=== PATIENT | male | born 1940 | race Caucasian/White ===

== ENCOUNTER 2024-12-28 14:02 | Outpatient (CLI) | payer MEDICARE, SELFPAY ==
--- NOTE | ~2024-12-28 | CT_ITS ---
CT abdomen pelvis wo con Ordering provider: Bonifacio Canchola DO History: 84 years Male with . R31.0 - Gross hematuria . Comparison: None. Technique: CT abdomen and pelvis without IV and without oral contrast. Automated exposure control and iterative reconstruction technique were employed. The dose-length product was 336.75 mGy-cm. Findings: VISUALIZED LOWER CHEST: Nodule is seen in the right lower lobe measuring 1.3 cm. Aneurysm cannot be e xcluded. Bilateral dependent atelectatic changes. UPPER ABDOMINAL ORGANS: Liver: Mild hepatomegaly. Gallbladder: Normal. Spleen: Normal. Stomach/duodenum: Normal. Pancreas: Normal. Adrenals: Normal. Kidneys: Tiny stone in the left kidney mid pole. PELVIC ORGANS: The bladder shows slightly thickened wall. Evaluation for cystitis advised. Enlarged p rostate. BOWEL AND MESENTERY: Colon: No evidence of diverticulitis. No evidence of appendicitis. Small Bowel: Normal. No obstruction. Peritoneum/mesentery: No free air or free fluid. No mesenteric lymphadenopathy. RETROPERITONEUM: Stents are noted. 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 Moderate atheromatous disease of the abdominal aorta. No retroperitoneal lymphadenopathy. MUSCULOSKELETAL: Superficial soft tissues: The superficial soft tissues are normal. Bones: Old compression fracture of L1 and L2 is seen. Age appropriate degenerative changes of the spi ne. Bilateral hip osteoarthritic changes. IMPRESSION: 1. Highly suggestive aneurysm versus nodule in the right lung base pulmonary branches area. Further evaluation advised. 2. Highly suggestive tiny stone in the left kidney. 3. Mild hepatomegaly. 4. 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 5. Thickened wall of the urinary bladder which may indicate cystitis. 6. Enlarged prostate.. Physician: Bonifacio Canchola DO Was notified with the result of the patient at 3:55 PM on December 28, 2024. Reviewed, dictated and finalized at location A. IMPRESSION: 1. Highly suggestive aneurysm versus nodule in the right lung base pulmonary b ranches area. Further evaluation advised. 2. Highly suggestive tiny stone in the left kidney. 3. Mild hepatomegaly. 4. 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 5. Thickened wall of the urinary bladder which may indicate cystitis. 6. Enlarged prostate.. Physician: Bonifacio Canchola DO Was notified with the result of the patient at 3:55 PM on December 28, 2024.
--- OUTSIDE RECORDS SUMMARY | 2024-12-28 14:05 | XMS_ITS | Encounter Summary ---
Author Organization [facility] Health Address [address] [facility] [place] [address] Care Team Providers Care Software Developer Mid Level Name Role Phone Alfa Martines Primary Care Provider [phone] Blaze Akhtar MD Unavailable [phone] Jamie Jaime MD Unavailable Encounter Details Date Type Department Care Team (Late st Contact Info) Description 01/25/2018 Lab Requisition [facility] Care DermPath Lab [address] [facility], [place] [id number] Des Hannon MD [address] [place] [address] Social History Tobacco Use Types Packs/Day Years Used Date Smoking Tobacco: Every Day Cigarettes 1 20 Smokeless Tobacco: Never Alcohol Use Standard Drinks/Week Comments No 0 (1 standard drink = 0.6 oz pur e alcohol) Sex and Gender Information Value Date Recorded Sex Assigned at Not on file 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 Answer Date of Assessment Author No 10/15/2017 2:27 PM Sly Garcia RN * Is person blind or have serious difficulty seeing? Answer Date of Assessment Author Yes 10/15/2017 2:27 PM Sly Garcia RN * Does person have serious difficulty walking/climbing stairs? Answer Date of Assessment Author No 10/15/2017 2:27 PM Sly Garcia RN * Does person have difficulty dressing/bathing? Answer Date of Assessment Author No 10/15/2017 2:27 PM CDT Sly Senior RN * Does person have difficulty doing errands alone? Answer Date of Assessment Author No 10/15/2017 2:27 PM CDT Sly Senior RN documented as of this encounter Mental Status * Does person have difficulty concentrating/remembering/making decisions? Answer Entry Date Author No 10/15/2017 2:27 PM CDT Sly Senior RN documented in this encounter Plan of Treatment Not on file documented as of this encounter Procedures Procedure Name Priority Date/Time Associated Diagnosis Comments DERMATOPATHOLOGY Routine 01/24/2018 12:0 0 AM CDT documented in this encounter Results * DERMATOPATHOLOGY (01/24/2018 12:00 AM CDT) Case Report Dermatopathology Report Case: [id number] Authorizing Provider: Des Hannon MD Collected: 01/24/2018 12:00 AM Pathologist: Melody Lepe MD Received: 01/25/2018 11:44 AM Specimen: Skin, left upper outer arm 8 1:55 PM CDT DERMATOPATHOLOGY LABORATORY Final Diagnosis Specimen A. SKIN, left upper outer arm: DERMAL SCAR; PRESENT AT MARGIN (L90.5) RESIDUAL SQUAMOUS CELL CARCINOMA NOT IDENTIFIED 8 1:55 PM CDT DERMATOPATHOLOGY LABORATORY at 1355 CDT Clinical History R/O Bx proven SCCIS. Previous Bx: [id number]. 8 1:55 PM CDT DERMATOPATHOLOGY LABORATORY Gross Description Specimen A: Received is one formalin filled container labeled with the patient's name and designated left upper outer arm. The specimen consists of a curettage and desiccation biopsy measuring [id number]. Jar 0. 8 1:55 PM CDT DERMATOPATHOLOGY LABORATORY Microscopic Description Specimen A. SKIN, left upper outer arm: There are fibroblasts and collagen bundles oriented parallel to the skin surface. There are elongated blood vessels, some of which are oriented perpendicular to the skin surface. No residual squamous cell carcinoma is identified. The dermal scar is present at the base of the specimen. 8 1:55 PM CDT DERMATOPATHOLOGY LABORATORY Disclaimer An external and internal positive and negative controls are appropriate for the histochemical, immunohistochemical and immunofluorescence stain(s) in this case (if any), except where stated explicitly. The performance characteristics of the stain(s) cited in this report were developed and its performance characteristic determined by the Dermatopathology Laboratory at [facility]. These tests need not be, and therefore are not, approved by the [place] Food and Drug Administration. The tests are used for clinical purposes. Billing Codes Specimen Charges Stain Charges 48479 1 8 1:55 PM CDT DERMATOPATHOLOGY LABORATORY Embedded Images 1:55 PM CDT DERMATOPATHOLOGY LABORATORY Pathology/Cytolog y TISSUE SPECIMEN FROM SKIN / Unknown 01/24/2018 01/25/2018 11:44 AM CDT Des Hannon MD LAB - PATHOLOGY/CYTOLOGY ORD ERABLES Final Result Performing Organization Address City/State/[facility] Co de Phone Number DERMATOPATHOLOGY LABORATORY [facility] - Department of Dermatology [address] [place] [address], 5th Floor Lab [address] [phone] documented in this encounter Visit Diagnoses Not on filedocumented in this encounter Care Teams Software Developer Mid Level Relationship Specialty Start Date End Date Alfa Martines DO [address] [facility] [address] [place] [address] PCP - General 10/14/10 Blaze Akhtar MD [address] [facility] [address] [address] Cardiovascular Disease 09/21/17 Jamie Jaime MD [address] [facility] [address] [address] Vascular Surgery 09/21/17 documented as of this encounter
--- OUTSIDE RECORDS SUMMARY | 2024-12-28 14:05 | XMS_ITS | Encounter Summary ---
Author Organization [facility] Health Address [address] [place] [address] Care Team Providers Care Paperboard Boxes Estimator Name Role Phone Alfa Martines DO Primary Care Provider [phone] Blaze Akhtar MD Unavailable [phone] Jamie Jaime MD Unavailable [phone] Encounter Details Date Type Department Care Team (Late st Contact Info) Description 10/15/2017 Ophth Exam [facility] [address] [place] [address] Leida Cantu MD [address] [facility] [place] [address] Social History Tobacco Use Types Packs/Day Years Used Date Smoking Tobacco: Every Day Cigarettes 1 20 Smokeless Tobacco: Never Alcohol Use Standard Drinks/Week Comments No 0 (1 standard drink = 0.6 oz pur e alcohol) Sex and Gender Information Value Date Recorded Sex Assigned at Not on file 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 Answer Date of Assessment Author No 10/15/2017 2:27 PM Sly Garcia RN documented as of this encounter Mental Status * Does person have difficulty concentrating/remembering/making decisions? Answer Entry Date Author No 10/15/2017 2:27 PM Sly Garcia RN documented in this encounter Plan of Treatment Not on file documented as of this encounter Visit Diagnoses Not on filedocumented in this encounter Care Teams Paperboard Boxes Estimator Relationship Specialty Start Date End Date Alfa Martines DO [address] [facility] [address] [address] PCP - General 10/14/10 Blaze Akhtar MD [address] [facility] [address] [address] Cardiovascular Disease 09/21/17 Jamie Jaime MD [address] [facility] [address] [address] Vascular Surgery 09/21/17 documented as of this encounter
--- OUTSIDE RECORDS SUMMARY | 2024-12-28 14:05 | XMS_ITS | Encounter Summary ---
Author Organization [facility] Health Address [address] [place] [address] Care Team Providers Care Head Of Digital Advertising & Integration Name Role Phone Alfa Martines Primary Care Provider [phone] Blaze Akhtar MD Unavailable [phone] Jamie Jaime MD Unavailable [phone] Encounter Details Date Type Department Care Team (Late st Contact Info) Description 04/24/2020 Lab Requisition [facility] Care DermPath Lab [address] [facility], [place] [id number] Des Hannon MD [address] [place] [address] Social History Tobacco Use Types Packs/Day Years Used Date Smoking Tobacco: Every Day Cigarettes 1 20 Smokeless Tobacco: Never Alcohol Use Standard Drinks/Week Comments No 0 (1 standard drink = 0.6 oz pur e alcohol) Sex and Gender Information Value Date Recorded Sex Assigned at Not on file 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 Gender Identity Not on file Sexual Orientation [...] Priority Date/Time Associated Diagnosis Comments DERMATOPATHOLOGY Routine 04/23/2020 12:0 0 AM SEMICONDUCTOR PROCESSOR documented in this encounter Results * DERMATOPATHOLOGY (04/23/2020 12:00 AM SEMICONDUCTOR PROCESSOR) Case Report Dermatopathology Report Case: [id number] Authorizing Provider: Des Hannon MD Collected: 04/23/2020 12:00 AM Ordering Location: [facility] DermPath Lab Received: 04/24/2020 11:25 AM Pathologist: Gallito Rosario MD Specimens: A) - Skin, left post thigh B) - Skin, left inner thigh 0 5:19 PM [facility] DERMATOPATHOLOGY LABORATORY Final Diagnosis Specimen A. SKIN, left post thigh: SPONGIOTIC DERMATITIS WITH EOSINOPHILS (L30.8) (see microscopic description and comment) Specimen B. SKIN, left inner thigh: SPONGIOTIC DERMATITIS WITH NUMEROUS EOSINOPHILS (L30.8) (see microscopic description and comment) 0 5:19 PM SEMICONDUCTOR PROCESSOR DERMATOPATHOLOGY LABORATORY at 1719 SEMICONDUCTOR PROCESSOR Clinical History A-B: R/O psoriasis, eczema, allergic dermatitis vs CTCL. 0 5:19 PM [facility] DERMATOPATHOLOGY LABORATORY Gross Description Specimen A: Received is one formalin filled container labeled with the patient's name and designated left post thigh. The specimen consists of a shave biopsy measuring [id number]. Jar 0. Specimen B: Received is one formalin filled container labeled with the patient's name and designated left inner thigh. The specimen consists of a shave biopsy measuring [id number]. Jar 0. 0 5:19 PM [facility] DERMATOPATHOLOGY LABORATORY Microscopic Description Specimen A. SKIN, left post thigh: There is focal parakeratosis and spongiosis. In the dermis there is a mainly superficial perivascular lymphohistiocytic inflammatory infiltrate with eosinophils. Grocott's methenamine silver (GMS) stain fails to highlight fungal elements in the available sections. COMMENT: The histological differential diagnosis includes a contact dermatitis, an eczematous drug eruption, and less likely the urticarial phase of bullous pemphigoid. Specimen B. SKIN, left inner thigh: There is focal parakeratosis and spongiosis. In the dermis there is a mainly superficial perivascular lymphohistiocytic inflammatory infiltrate with numerous eosinophils. Grocott's methenamine silver (GMS) stain fails to highlight fungal elements in the available sections. COMMENT: The histological differential diagnosis includes a contact dermatitis, an eczematous drug eruption, and less likely the urticarial phase of bullous pemphigoid. 0 5:19 PM [facility] DERMATOPATHOLOGY LABORATORY Disclaimer An external and internal positive and negative controls are appropriate for the histochemical, immunohistochemical and immunofluorescence stain(s) in this case (if any), except where stated explicitly. The performance characteristics of the stain(s) cited in this report were developed and its performance characteristic determined by the Dermatopathology Laboratory at [facility], directed by Dr. Bhaskar Rosario. These tests need not be, and therefore are not, approved by the [place] Food and Drug Administration. The tests are used for clinical purposes. Billing Codes Specimen Charges Stain Charges 46790 32094 1 1 74003 23524 1 1 0 5:19 PM [facility] DERMATOPATHOLOGY LABORATORY Embedded Images 0 5:19 PM [facility] DERMATOPATHOLOGY LABORATORY Pathology/Cytology TISSUE SPECIMEN FROM SKIN / Unknown 04/23/2020 04/24/2020 11:25 AM SEMICONDUCTOR PROCESSOR Miscellaneous samples (specimen) TISSUE SPECIMEN FROM SKIN / Unknown 04/23/2020 04/24/2020 11:25 AM SEMICONDUCTOR PROCESSOR us Des Hannon MD LAB - PATHOLOGY/CYTOLOGY ORD ERABLES Final Result DERMATOPATHOLOGY LABORATORY [facility] - Department of Dermatology [address] [phone] documented in this encounter Visit Diagnoses Not on filedocumented in this encounter Care Teams Head Of Digital Advertising & Integration Relationship Specialty Start Date End Date Alfa Martines DO [address] [facility] [address] [place] [address] PCP - General 10/14/10 Blaze Akhtar MD [address] [facility] [address] [facility] [address] [place] [address] Cardiovascular Disease 09/21/17 Jamie Jaime MD [address] [facility] [address] [address] Vascular Surgery 09/21/17 documented as of this encounter
--- OUTSIDE RECORDS SUMMARY | 2024-12-28 14:05 | XMS_ITS | Clinical Summary ---
Author Organization [facility] D Address [address] [place] [address] Care Team Providers Care Manager Poker Name Role Phone Alfa Martines MD Primary Care Provider [phone] Blaze Akhtar MD Unavailable [phone] Lazara Tompkins MD Unavailable Javed Gibbs MD Unavailable [phone] Allergies Active Allergy Reactions Criticality Noted Date Comments Ketoprofen Fever Medium 06/26/2021 Other Other (See comments) High 07/01/2021 Penicillin Other (See comments) High 07/01/2021 Penicillins Other (See comments) Low Reaction: UNSPEC CHILDHD RX, , , Medications cilostazoL (PLETAL) 100 mg tabletIndication s:Intermittent Claudication Take 1 tablet (100 mg total) by mouth 2 (two) times a day 60 tablet 11 1 Active simvastatin (ZOCOR) 80 mg tablet Take 80 mg by mouth nightly Active aspirin 81 mg chewable tablet Take 81 mg by mouth daily Active NIFEdipine (PROCARDIA XL/ADALAT CC) 90 mg 24 hr tablet Take 90 mg by mouth daily Active cyclobenzaprine (FLEXERIL) 10 mg tablet Take 10 mg by mouth 3 (three) times a day as needed for muscle spasms Active metoprolol XL (TOPROL-XL) 25 mg extended release tablet Take 1 tablet (25 mg total) by mouth daily 30 tablet 1 2 Active Additional Information Patient taking differently: 50 mgoral Daily, Reported on 01/06/2022 clopidogreL (PLAVIX) 75 mg tablet 2 Active betamethasone dipropionate (DEL-BETA) 0.05 % cream 2 Active predniSONE (DELTASONE) 1 mg tablet TAKE 4 TABLETS (4 MG) BY MOUTH DAILY 360 tablet 3 Active Active Problems Problem Noted Date Diagnosed Date Influenza 05/31/2023 SBO (small bowel obstruction) 06/26/2021 Severe malnutrition 06/26/2021 Pain 06/16/2021 Stage 3b chronic kidney disease 06/15/2021 RENA (acute kidney injury) 06/15/2021 Generalized weakness 06/15/2021 Generalized pain 06/15/2021 Hyperlipidemia 07/29/2015 Overview (09/17/2016): Hyperlipidemia Assessment & Plan (12/07/2019 3:39 PM CDT): Lipid panel today demonstrates an LDL of 81 mg/dL. Will continue current therapy but shared with the patient that his LDL has increased since his last assessment. Assessment & Plan (09/29/2018 2:16 PM CDT): Well controlled. Continue current therapy. Assessment & Plan (09/14/2017 11:04 AM CDT): Well controlled. Follow. Essential hypertension 07/29/2015 Overview (09/17/2016): Essential hypertension Assessment & Plan (12/07/2019 3:39 PM CDT): Well controlled. Continue current therapy. Pain in extremity 01/23/2015 Overview (09/17/2016): Pain in limb Peripheral arterial occlusive disease (CMS/HCC) 04/19/2014 Overview (09/17/2016): Peripheral artery disease Assessment & Plan (12/05/2020 2:51 PM CDT): Symptoms are consistent with peripheral vascular disease but noninvasive assessments of recently been relatively unremarkable. He has renal insufficiency so CT angiography may be relatively contraindicated. I have no objection to an empiric trial of Pletal. Will discontinue Plavix to avoid excessive bleeding risk. Continue aspirin. Assessment & Plan (09/14/2017 11:03 AM CDT): Managed elsewhere. Likely stable. Dyslipidemia 10/27/2013 Overview (09/15/2016): Dyslipidemia Coronary arteriosclerosis in [place] artery 10/27 Overview (09/16/2016): CAD in [place] artery Assessment & Plan (12/05/2020 2:51 PM CDT): Doing well. No chest discomfort on his current regimen. Continue current prescription medications. Assessment & Plan (12/07/2019 3:38 PM CDT): Doing well. Continue current therapy. Assessment & Plan (09/29/2018 2:16 PM CDT): Stable. No angina. Continue current therapy. Assessment & Plan (09/14/2017 11:03 AM CDT): Stable. No angina. Continue current therapy. Hypertension 10/27/2013 Overview (09/18/2016): Hypertension Assessment & Plan (09/14/2017 11:04 AM CDT): Well controlled. Continue current therapy. History of coronary artery bypass surgery 2013 Overview (09/18/2016): Hx of CABG Spinal stenosis of lumbar region 06/22/2013 Overview (09/15/2016): Lumbar spinal stenosis Radicular pain 06/22/2013 Overview (09/18/2016): Lumbar radiculopathy, chronic Weight loss, unintentional Acute urinary retention Abdominal pain Immunizations Immunization Administration Dates Next Due Influenza, Quadrivalent, Spl it, Preservative Free, Intramuscular 03/12/2020,06/28/2014 Influenza, Trivalent, IM (MDV) 05/13/2021,2019 Pfizer SARS-CoV-2 Monovalent Vaccination (12+ Yrs) PURPLE 05/05/2021,07/28/2020,07/07/2020 Pneumococcal Polysaccharide PPV23 06/28/2014 Tdap 08/29/2018 Surgical History Surgery Date Site/Laterality Comments CORONARY ARTERY BYPASS GRAFT CABG Medical History Medical History Date Comments Hx Other Medical CAD Hypertension Hypertension Hyperlipidemia Hyperlipidemia Hx Other Medical Lumbar Spine Di sease Neoplasm of testis Cancer, testi cular Peripheral vascular disease Comfort pheral vascular disease Coronary artery disease CKD (chronic kidney disease) Family History Medical History Relation Name Comments Dementia Father Dementia; Cause of : Dementia Coronary artery disease Mother Fran nary Artery Bypass Graft; Lung cancer Mother Cancer -lung; C ause of : Cancer -lung Coronary artery disease Other Fami ly history of Coronary artery disease; Relation Name Status Comments Father (Age 83) Mother (Age 83) Other Social History Tobacco Use Types Packs/Day Years Used Date Smoking Tobacco: Every Day Cigarettes Smokeless Tobacco: Never Tobacco Cessation:Ready to Q uit: Not Asked; Counseling Given: Not Answered Alcohol Use Standard Drinks/Week Comments Yes 0 (1 standard drink = 0.6 oz pur e alcohol) Social Connection and Isolat ion Panel [NHANES] Answer Date Recorded In a typical week, how many times do you talk on the phone with family, friends, or neighbors? More than three times a week 06/29/2021 How often do you get togethe r with friends or relatives? More than three times a week 06/29/2021 How often do you attend chur ch or voodoo services? Never 06/29/2021 Do you belong to any clubs o r organizations such as catholic groups, unions, fraternal or athletic groups, or school groups? No 06/29/2021 How often do you attend meet ings of the clubs or organizations you belong to? Never 06/29/2021 Are you , , di vorced, , never , or living with a partner? 06/29/2021 Overall Financial Resource Strain (CARDIA) Answe r Date Recorded How hard is it for you to pa y for the very basics like food, housing, medical care, and heating? Not hard at all 06/29/2021 PHQ-2 Answer Date Recorded PHQ-2 Total Score (If total score is 3 or more points, staff should administer the PHQ-9) 0 01/06/2022 PRAPARE - Transportation Answer Date Re corded In the past 12 months, has l ack of transportation kept you from medical appointments or from getting medications? No 06/13 In the past 12 months, has l ack of transportation kept you from meetings, work, or from getting things needed for daily living? No 06/29/2021 Personal Safety Answer Date Recorded Have you ever been in or are you currently in a harmful physical or emotional relationship or is someone making you feel afraid or unsafe? Denies 05/31/2023 Sex and Gender Information Value Date Recorded Sex Assigned at Not on file Legal Sex Male 8:12 AM SCIENCE INTERN Gender Identity Not on file Sexual Orientation Not on file Obstetrics History Last Filed Vital Signs Vital Sign Reading Time Taken Comments Blood Pressure 196/76 05/31/2023 7:25 PM SCIENCE INTERN Pulse 94 05/31/2023 7:25 PM SCIENCE INTERN Temperature 37.7 C (99.9 F) 05/31/2023 7:25 PM SCIENCE INTERN Respiratory Rate 20 05/31/2023 7:25 PM SCIENCE INTERN Oxygen Saturation 97% 05/31/2023 7:25 PM SCIENCE INTERN Inhaled Oxygen Concentration - - Weight 77.1 kg (170 lb) 05/31/2023 4:07 PM SCIENCE INTERN Height 182.9 cm (6') 09/01/2022 8:58 AM CDT Body Mass Index 23.06 09/01/2022 8:58 AM CDT Plan of Treatment Health Maintenance Due Date Last Done Comments Hepatitis B Screening 02[birth year]19/1958 Zoster Vaccine (1 of 2) 02/19/1990 Well Visit 65+ 02/19/2005 Pneumococcal vaccine 65+ (2 of 2 - PCV) 06/28/2015 06/28/2014 Depression Screening 01/06/2023 01/06/2022 Fall Risk Assessment 01/06/2023 01/06/2022, 06/29/19 22 Covid-19 Vaccine (4 - 2023-2 5 season) 2024 05/05/2021, 07/28/2020, 07/07/2020 Influenza Vaccine (#1) 2025 , 03/12/2020, 03/12/2020, Additional history exists DTaP/Tdap/Td Vaccine (2 - Td or Tdap) 08/29/2028 08/29/2018 Insurance T MEDICARE AET MEDICARE AET MEDICARE Advance Directives For more information, please contact: [phone] Documents on File Type Date Recorded Patient Prenatal Teacher Expl anation ADVANCE DIRECTIVE 07/26/2013 12:18 PM Adva nce Directive Checklist ADVANCE DIRECTIVE 07/26/2013 12:17 PM ADVANCE DIRECTIVE 07/16/2013 12:17 PM ADVANCE DIRECTIVE 07/16/2013 12:17 PM Advan ce Directive Checklist * LIMITED - No CPR (Latest Code Status on File) Date Activated Date Inactivated Comments 06/29/2021 12:30 PM 06/29/2021 6:20 PM Question Answer Comments Provide aggressive medical m anagement before a full cardiopulmonary arrest occurs. Use antibiotics, IV Fluids, and medical treatment unless specifically selected below: No intubationNo non-invasive ventilationNo cardioversion * Full Code Date Activated Date Inactivated Comments 06/26/2021 10:30 AM 06/29/2021 12:30 PM * LIMITED - No CPR Date Activated Date Inactivated Comments 06/15/2021 5:11 PM 06/17/2021 11:15 PM Question Answer Comments Provide aggressive medical m anagement before a full cardiopulmonary arrest occurs. Use antibiotics, IV Fluids, and medical treatment unless specifically selected below: No intubationNo non-invasive ventilationNo cardioversion Care Teams Manager Poker Relationship Specialty Start Date End Date Alfa Martines MD [address] [address] PCP - General 09/10/16 Blaze Akhtar MD [address] [address] Cardiology 01/03/17 Lazara Tompkins MD [address] [address] Medical Oncologist/Finance Officer Hematology and Oncology 06/22/21 [place] [address] [place] [address] Consulting Physician Urology 06/29/21
--- OUTSIDE RECORDS SUMMARY | 2024-12-28 14:05 | XMS_ITS | Encounter Summary ---
Author Organization [facility] Health Address [address] [facility] [place] [address] Care Team Providers Care Employee'S Representative Name Role Phone Alfa Martines Primary Care Provider [phone] Blaze Akhtar MD Unavailable [phone] Jamie Jaime MD Unavailable [phone] Encounter Details Date Type Department Care Team (Late st Contact Info) Description 12/07/2017 Lab Requisition [facility] Care DermPath Lab [address] 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 8 4:26 PM CDT DERMATOPATHOLOGY LABORATORY Gross Description Specimen A: Received is one formalin filled container labeled with the patient's name and designated left upper outer arm. The specimen consists of a shave biopsy measuring [id number]. Jar 0. 8 4:26 PM CDT DERMATOPATHOLOGY LABORATORY Microscopic Description Specimen A. SKIN, left upper outer arm: The epidermis shows parakeratosis, full thickness disorderly maturation of keratinocytes, mitoses at different levels, and dyskeratotic cells. 8 4:26 PM CDT DERMATOPATHOLOGY LABORATORY Disclaimer An external and internal positive and negative controls are appropriate for the histochemical, immunohistochemical and immunofluorescence stain(s) in this case (if any), except where stated explicitly. The performance characteristics of the stain(s) cited in this report were developed and its performance characteristic determined by the Dermatopathology Laboratory at [facility]. These tests need not be, and therefore are not, approved by the [place] Food and Drug Administration. The tests are used for clinical purposes. Billing Codes Specimen Charges Stain Charges 42528 1 8 4:26 PM CDT DERMATOPATHOLOGY LABORATORY Embedded Images 8 4:26 PM CDT DERMATOPATHOLOGY LABORATORY Pathology/Cytolog y TISSUE SPECIMEN FROM SKIN / Unknown 12/06/2017 12/07/2017 12:09 PM CDT Des Hannon MD LAB - PATHOLOGY/CYTOLOGY ORD ERABLES Final Result DERMATOPATHOLOGY LABORATORY [facility] - Department of Dermatology [address] [place] [address] 5th Floor Lab [address] [phone] documented in this encounter Visit Diagnoses Not on filedocumented in this encounter Care Teams Employee'S Representative Relationship Specialty Start Date End Date Alfa Martines DO [address] [facility] [address] [place] [address] PCP - General 10/14/10 Blaze Akhtar MD [address] [facility] [address] [address] Cardiovascular Disease 09/21/17 Jamie Jaime MD [address] [facility] [address] [address] Vascular Surgery 09/21/17 documented as of this encounter
--- OUTSIDE RECORDS SUMMARY | 2024-12-28 14:05 | XMS_ITS | Referral Summary ---
Author Organization [facility] D Address [address] [place] [address] Care Team Providers Care Consumer Attorney Name Role Phone Alfa Martines MD Primary Care Provider [phone] Blaze Akhtar MD Unavailable [phone] Lzaara Tompkins MD Unavailable Javed Gibbs MD Unavailable [phone] Allergies Active Allergy Reactions Criticality Noted [...] 10/27/2013 Overview (09/15/2016): Dyslipidemia Coronary arteriosclerosis in [place] artery 10/27 Overview (09/16/2016): CAD in [place] artery Assessment & Plan (12/05/2020 2:51 PM [...] 05/05/2021,07/28/2020,07/07/2020 Pneumococcal Polysaccharide PPV23 06/28/2014 Tdap 08/29/2018 Social History Tobacco Use Types Packs/Day Years [...] often do you attend chur ch or sikhism services? 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 Gender Identity Not on file Sexual Orientation Not on file Last Filed Vital Signs Vital Sign Reading Time Taken Comments Blood Pressure 196/76 05/31/2023 7:25 PM FOXING CUTTING MACHINE OPERATOR Pulse 94 05/31/2023 7:25 PM FOXING CUTTING MACHINE OPERATOR Temperature 37.7 C (99.9 F) 05/31/2023 7:25 PM FOXING CUTTING MACHINE OPERATOR Respiratory Rate 20 05/31/2023 7:25 PM FOXING CUTTING MACHINE OPERATOR Oxygen Saturation 97% 05/31/2023 7:25 PM FOXING CUTTING MACHINE OPERATOR Inhaled Oxygen Concentration - - Weight 77.1 kg (170 lb) 05/31/2023 4:07 PM FOXING CUTTING MACHINE OPERATOR Height 182.9 cm (6') 09/01/2022 8:58 AM CDT Body Mass Index 23.06 09/01/2022 8:58 AM CDT Plan of Treatment Not on file Insurance [facility] MEDICARE [facility] MEDICARE [facility] MEDICARE Advance Directives For more information, please contact: [phone] Documents on File Type Date Recorded Patient Electronic Resources Librarian Expl anation ADVANCE DIRECTIVE 07/26/2013 12:18 PM [...] No intubationNo non-invasive ventilationNo cardioversion Care Teams Consumer Attorney Relationship Specialty Start Date End Date Alfa Martines MD [address] [facility] [address] [place] [address] PCP - General 09/10/16 Blaze Akhtar MD [address] [facility] [address] [place] [address] Cardiology 01/03/17 Lazara Tompkins MD [address] [facility] [address] [place] [address] Medical Oncologist/It Business Systems Analyst Hematology and Oncology 06/22/21 [place] [address] [place] [address] Consulting Physician Urology 06/29/21
--- OUTSIDE RECORDS SUMMARY | 2024-12-28 14:05 | XMS_ITS | Clinical Summary ---
Author Organization [facility] Address [address] [place] [address] Phone Care Team Providers Care Ships Or Barges Loader Name Role Phone Alfa Martines DO Primary Care Provider [phone] Allergies Active Allergy Reactions Criticality Noted Date Comments Ketoprofen Penicillins Medications aspirin (ASPIR-LOW) 81 MG EC tablet 1 daily 0 08/14/2018 Active NIFEdipine XL (PROCARDIA XL) 90 MG 24 hr tablet 1 dialy 0 08/14/2018 Active simvastatin (ZOCOR) 80 MG tablet 1 daily 0 08/14/2018 Active clopidogrel (PLAVIX) 75 MG tablet TAKE ONE TABLET BY MOUTH EVERY DAY 05/15/2019 Active lisinopril-hydro CHLOROthiazide (PRINZIDE) 20-25 MG per tablet 10/27/2020 Activ e cilostazol (PLETAL) 100 MG tablet 05/04/2021 Active predniSONE (DELTASONE) 1 MG tablet 4 mg 10/29/2021 Active metoprolol succinate XL (TOPROL-XL) 25 MG 24 hr tablet 10/28/2021 Act sheila Active Problems Problem Noted Date Diagnosed Date 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 Continue current therapy. Coronary arteriosclerosis 10/27/2013 Overview (11/27/2020): CAD in [place] artery Last Assessment & Plan: Doing well. Continue current therapy. Dyslipidemia 10/27/2013 Overview (11/27/2020): Dyslipidemia History of coronary artery bypass grafting 10/27 Overview (11/27/2020): Overview: Hx of CABG Hx of CABG Immunizations Immunization Administration Dates Next Due Influenza TIV (IM) 05/13/2021,03/12/2020 Influenza, Injectable, Quadr ivalent, Preservative Free 03/12/2020,06/28/2014 Pfizer Sars-cov-2 Vaccination 05/05/2021, 021,07/07/2020 Pneumococcal Polysaccharide 06/28/2014 Tdap 08/29/2018 Family History Medical History Relation Comments Kidney disease Neg Hx Social History Tobacco Use Types Packs/Day Years Used Date Smoking Tobacco: Heavy Smoker Smokeless Tobacco: Never Comments:Smoking History Pac ks/day: 1 ppd Alcohol Use Standard Drinks/Week Comments Yes 0 (1 standard drink = 0.6 oz pur e alcohol) Alcoholic Drinks/day: rare Sex and Gender Information Value Date Recorded Sex Assigned at Not on file Legal Sex Male 7:53 PM [email or web address] Gender Identity Not on file Sexual Orientation Not on file Last Filed Vital Signs Vital Sign Reading Time Taken Comments Blood Pressure 134/70 11/30/2021 8:41 AM CDT Pulse 84 11/30/2021 8:41 AM CDT Temperature 36.2 C (97.1 F) 11/30/2021 8:41 AM CDT Respiratory Rate - - Oxygen Saturation - - Inhaled Oxygen Concentration - - Weight 76.7 kg (169 lb) 11/30/2021 8:41 AM CDT Height 185.4 cm (6' 1) 11/30/2021 8:41 AM CDT Body Mass Index 22.3 11/30/2021 8:41 AM CDT Plan of Treatment Health Maintenance Due Date Last Done Comments Pneumococcal PPSV23/PCV13 65 + Years / Low and Medium Risk (2 of 3 - PCV) 06/28/2015 06/28/2014 COVID-19 Vaccine (4 - 2023-2 5 season) 2024 05/05/2021, 07/28/2020, 07/07/2020 Influenza Vaccine (#1) 2025 , 03/12/2020, 03/12/2020, Additional history exists Insurance [employer] MEDICARE Care Teams Ships Or Barges Loader Relationship Specialty Start Date End Date Alfa Martines DO [address] [id number] PCP - General Internal Medicine 09/25/18
--- OUTSIDE RECORDS SUMMARY | 2024-12-28 14:05 | XMS_ITS | Continuity of Care Document ---
Author Organization [facility] Address [address] [facility] [address] [place] [address] Phone Care Team Providers Care Jboss Architect Name Role Phone [facility] Unavailable Unavail able Procedures Procedure Date Progressive Lens Per Lens Frames Deluxe Tax - Medical Office/outpatient Visit, Est No Script Eye Exam Established Pt No Script Office/outpatient Visit, Est Script Printed/Phoned Pt Requ Or Pharm N ot Availab Eye Exam Established Pt Eye Exam & Treatment Optic Nerve Head Eval Refraction Advance Directives Directive Yes / No Effective Date File Name No Information Encounters Encounter Description Practice Location Reason(s) For Visit Diagnoses Date Provider Providers Copied on Encounter [facility], [address] [place] [address] [address], [place], [place], [id number], [place] tel:[phone] [facility] No Information 9-200 9 [facility]. [address] [facility], [address], [place], [place], [id number], [place]. tel:[phone] Office/outpat ient Visit, Est [facility], [address] [place] [address] [address], [place], [place], [id number], [place] tel:[phone] [facility] [place] No Information 0-200 9 Krishnasamy Jaun. [address] [facility] [address], [place], [address], [place]. tel:[phone] [facility], [address], [place], [place], [id number], tel:[phone] [facility] No Information Mar-1 8-200 9 Krishnasamy Jaun. [facility] [address], [place], [place], [facility], . tel:[phone] Office/outpat ient Visit, Est [facility], [address] [place] [address] [address], [place], [place], [id number], tel:[phone] [facility] No Information Mar-1 6-200 9 Krishnasamy Jaun. [facility] [address], [place], [place], [facility], . tel:[phone] [facility], [address] [place] [address] [address], [place], [place], [id number], tel:[phone] [facility] No Information Mar-1 0-200 9 Loli Cox. [address] [facility] , [address], [place], [place], [facility], . tel:[phone] [facility], [address] [place] [address] [address], [place], [place], [id number], tel:[phone] [facility] No Information Dec-2 9-200 8 Ean Denny. [facility] , [address], [place], [place], [facility], . tel:[phone] Family History Family Member Type Diagnosis Age At Onset No Information Payers Payer name Insurance type Covered republican ID Authoriza tion(s) No Information Social History Type Description Quantity Date Captured Comments Sex Male Smoking Status No Information Chief Complaint And Reason For Visit No Information Reason For Referral Reason For Referral No Information History Of Present Illness Encounter Date Complaint History Of Prese nt Illness No Information Functional Status Date Functional Assessmen t No Information Instructions Date Instruction Additional Infor mation No Information Assessments Type Assessment Date No Information Patient Care Teams Name Effective Dates (start - stop) Status Members No Information
--- OUTSIDE RECORDS SUMMARY | 2024-12-28 14:05 | XMS_ITS | Clinical Summary ---
Author Organization [facility] Address [address] [facility] [place] [address] Care Team Providers Care Director Of Financial Reporting Name Role Phone IvettAlfa wick Primary Care Provider [phone] Blaze Akhtar MD Unavailable [phone] Jamie Jaime MD Unavailable [phone] Source Comments [facility],non-owned Affiliates and Associated Physician Practices is amultiple site organization consisting of ambulatory clinics and hospital sitesin [place], [place], [place] and [place]. This disclosure is being madepursuant to the Care Everywhere program and may not contain all information available regarding this patient. Last updated 18.[facility] Allergies Active Allergy Reactions Criticality Noted Date Comments Ketoprofen Other Low 10/27/2011 High fever, High fever Penicillins Cross Reactors Other Low 2 fever, fever Medications * Be aware that medications may not be up to date on this document. Alwaysverify current medications with the patient. clopidogrel (PLAVIX) 75 MG tablet Take 75 mg by mouth DAILY. 01/14/2016 Active ASPIRIN 81 PO Take 81 mg by mouth Active SIMVASTATIN PO Take 80 mg by mouth once daily Active mupirocin (BACTROBAN) 2 % ointment 0.25 inch to the right side three times a day 22 g 1 12/23/2017 Active NIFEdipine CR osmotic 24hr (PROCARDIA-XL) 90 MG tablet Take 1 tablet by mouth once daily 01/25/2018 Active neomycin-polymy jessica-dexameth (MAXITROL) ophthalmic ointmentIndicat ions:Anophthalm os of right eye Instill 0.5 inches into right eye at bedtime 3.5 g 3 06/14/2018 Active tobramycin-dexa methasone (TOBRADEX) 0.3-0.1 % ophthalmic suspension Instill 1 drop into right eye 3 times daily as needed (drainage) 5 mL 2 06/14/2018 Active Active Problems Problem Noted Date Diagnosed Date 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 Likely stable. 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 Gender Identity Not on file Sexual Orientation Not on file Last Filed Vital Signs Vital Sign Reading Time Taken Comments Blood Pressure 117/50 10/15/2017 12:20 PM CDT Pulse 57 10/15/2017 12:20 PM CDT Temperature 36.4 C (97.6 F) 10/15/2017 12:20 PM CDT Respiratory Rate 16 10/15/2017 12:20 PM CDT Oxygen Saturation 95% 10/15/2017 12:20 PM CDT Inhaled Oxygen Concentration 21% 10/14/2017 1 1:00 AM CDT Weight 78 kg (172 lb) 10/14/2017 6:56 AM CDT Height 185.4 cm (6' 1) 10/14/2017 6:56 AM CDT Body Mass Index 22.69 10/14/2017 6:56 AM CDT Plan of Treatment Health Maintenance Due Date Last Done Comments DTAP/TDAP/TD VACCINES (1 - Tdap) 02/19/1959 ZOSTER VACCINE (1 of 2) 02/19/1990 Respiratory Syncytial Virus (RSV) Vaccine Pt: or over 60 yrs (1 - 1-dose 75+ series) 02/19/2015 PNEUMOCOCCAL VACCINE 50+ (2 of 2 - PCV) 06/28/2015 06/28/2014 COVID-19 VACCINE ( - 2023-2 5 season) 2024 DEPRESSION SCREENING 06/13/2024 MEDICARE AWV CALENDAR YEAR 2024 INFLUENZA VACCINE (#1) 2025 06/28/2014 HEPATITIS B VACCINE Aged Out No longe r eligible based on patient's age to complete this topic HIB VACCINE Aged Out No longer eligi ble based on patient's age to complete this topic HPV VACCINE Aged Out No longer eligi ble based on patient's age to complete this topic MENINGOCOCCAL (Group B) VACC INE SHARED DECISION-MAKING Aged Out No longer eligibl e based on patient's age to complete this topic MENINGOCOCCAL GROUPS A/C/Y/W VACCINE Aged Out No longer eligible b ased on patient's age to complete this topic Medical Devices Implanted Type Area Tester Operator Device Identifier Shelf Expiration Date Model / Serial / Lot Cnfrmr Opth Lg Pmma Ltwt Inert Rohini Implanted:Qty: 1 on 10/14/2017 by Leida Cantu MD at [facility] 06/22/2018 [id number] / / Insurance [facility] MANAGED MEDICARE ADV [facility] MANAGED MEDICARE ADV Advance Directives Documents on File Type Date Recorded Patient Lidar Technician Expl anation Adv Directive/Living Will/POA 10/21/2017 9:00 AM * Full Code (Latest Code Status on File) Date Activated Date Inactivated Comments 10/14/2017 6:32 PM 10/15/2017 4:28 PM * Full Code Date Activated Date Inactivated Comments 10/13/2017 7:51 PM 10/14/2017 6:32 PM Care Teams Director Of Financial Reporting Relationship Specialty Start Date End Date Alfa Martines DO [address] [facility] [address] [place] [id number] PCP - General 10/14/10 Blaze Akhtar MD [address] [facility] [address] [address] Cardiovascular Disease 09/21/17 Jamie Jaime MD [address] [facility] [address] [address] Vascular Surgery 09/21/17
== END 2024-12-28 14:03 | disposition home or self-care (01) ==
PROVIDERS: PCP Internal Medicine; Visit Provider Internal Medicine
DX: R31.0 Gross hematuria (principal); R16.0 Hepatomegaly, not elsewhere classified; I72.8 Aneurysm of other specified arteries; N40.0 Benign prostatic hyperplasia without lower urinary tract symptoms
CPT/HCPCS: 74176

== ENCOUNTER 2025-01-04 14:16 | Outpatient (CLI) | payer MEDICARE, SELFPAY ==
--- NOTE | ~2025-01-04 | CT_ITS ---
EXAMINATION: CT chest abdomen pelvis w con DATE: 01/04/2025 14:55 INDICATION: Aneurysm and hematuria TECHNIQUE: Computed tomography (CT) of the chest, abdomen, and pelvis was performed with 100 mL Omnip aque-350 intravenous contrast. Automated exposure control and iterative reconstruction technique were employed. The dose-length product was 473.42 mGy-cm. COMPARISON: 12/28/2024 FINDINGS: CHEST CT: Mild to moderate emphysema. Few small bilateral calcified pulmonary nodules along with calcified left hilar and mediastinal lymph nodes consistent with old granulomatous disease. The lesions suspect of aneurysm in the right lower lobe corresponds to the posterior segmental pulmonary artery. Mild depend ent atelectasis in the bilateral lower lobes. There is some fat tracking along the caudal aspect of t he left major fissure. No pneumonia, pulmonary edema or pleural effusion. Heart size is normal. Ather osclerotic coronary artery disease with change of prior median sternotomy and coronary artery bypass grafting. No pericardial effusion. Thoracic aorta is normal in caliber with no dissection. No patholo gically enlarged thoracic lymphadenopathy. Mild thoracic spondylosis. ABDOMEN/PELVIS CT: Liver, gallbladder, pancreas and bilateral adrenal glands are normal. There are some cortical scarrin g at the lower poles of both kidneys along with a few low-attenuation left renal cysts measuring up t o 1.2 cm. There are a few subcentimeter hypoenhancing lesions in the spleen most likely representing hemangiomas. There is moderate diverticulosis along the sigmoid colon without adjacent inflammatory s tranding to suggest diverticulitis. Small bowel and appendix are normal. Small region of intraluminal increased density along the caudal aspect of the bladder consistent with given history of hematuria. . Prostatomegaly measuring 4.9 x 3.3 cm. No free intraperitoneal gas or fluid. No pathologically enla rged abdominal or pelvic lymphadenopathy. There is calcified atherosclerosis of the normal caliber ab dominal aorta and many of the other arteries. Vascular stenting along the right common and external i liac artery. 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 Right inguinal postoperative changes with a few surgical clips and scarring in the subc utaneous tissues. Mild to moderate lower lumbar predominant spondylosis with chronic superior endplat e compression fractures at L1 and L2. IMPRESSION: 1. Mild to moderate emphysema. 2. 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 Stenting of the more proximal right common femoral external iliac artery. 3. Moderate diverticulosis. 4. Small region of increased attenuation suggestive but blood along the inferior bladder wall. 5. Prostatomegaly. Reviewed, dictated and finalized at location A. IMPRESSION: 1. Mild to moderate emphysema. 2. Postoperative changes at the right inguinal region with 2.0 cm fusiform aneu rysm of the right common femoral artery. Stenting of the more proximal right co mmon femoral external iliac artery. 3. Moderate diverticulosis. 4. Small region of increased attenuation suggestive but blood along the inferio r bladder wall. 5. Prostatomegaly.
--- OUTSIDE RECORDS SUMMARY | 2025-01-04 14:20 | XMS_ITS | Clinical Summary ---
Author Organization [facility] D Address [address] [place] [address] Care Team Providers Care Installation And Repair Technician Name Role Phone Alfa Martines MD Primary Care Provider [phone] Blaze Akhtar MD Unavailable [phone] Lazara Tompkins MD Unavailable Javed Gibbs MD Unavailable [phone] Allergies Active Allergy Reactions Criticality Noted [...] 10/27/2013 Overview (09/15/2016): Dyslipidemia Coronary arteriosclerosis in [place] artery 10/27 Overview (09/16/2016): CAD in [place] artery Assessment & Plan (12/05/2020 2:51 PM [...] often do you attend chur ch or latter day services? 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 Gender Identity Not on file Sexual Orientation Not on file Obstetrics History Last Filed Vital Signs Vital Sign Reading Time Taken Comments Blood Pressure 196/76 05/31/2023 7:25 PM ADMINISTRATIVE JOB TITLES Pulse 94 05/31/2023 7:25 PM ADMINISTRATIVE JOB TITLES Temperature 37.7 C (99.9 F) 05/31/2023 7:25 PM ADMINISTRATIVE JOB TITLES Respiratory Rate 20 05/31/2023 7:25 PM ADMINISTRATIVE JOB TITLES Oxygen Saturation 97% 05/31/2023 7:25 PM ADMINISTRATIVE JOB TITLES Inhaled Oxygen Concentration - - Weight 77.1 kg (170 lb) 05/31/2023 4:07 PM ADMINISTRATIVE JOB TITLES Height 182.9 cm (6') 09/01/2022 8:58 AM [...] Advance Directives For more information, please contact: [phone] Documents on File Type Date Recorded Patient Wood Piler Expl anation ADVANCE DIRECTIVE 07/26/2013 12:18 PM [...] No intubationNo non-invasive ventilationNo cardioversion Care Teams Installation And Repair Technician Relationship Specialty Start Date End Date Alfa Martines MD [address] [address] PCP - General 09/10/16 Blaze Akhtar MD [address] [address] Cardiology 01/03/17 Lazara Tompkins MD [address] [address] Medical Oncologist/Stitcher Tape Controlled Machine Hematology and Oncology 06/22/21 [place] [address] [place] [address] Consulting Physician Urology 06/29/21
--- OUTSIDE RECORDS SUMMARY | 2025-01-04 14:20 | XMS_ITS | Clinical Summary ---
Author Organization [facility] Address [address] [place] [address] Care Team Providers Care Licensed Loan Officer Name Role Phone IvettAlfa wick Primary Care Provider [phone] Blaze Akhtar MD Unavailable [phone] Jamie Jaime MD Unavailable [phone] Source Comments [facility],non-owned Affiliates and Associated Physician Practices is amultiple site organization consisting of ambulatory clinics and hospital sitesin [place], [place], [place] and [place]. This disclosure is being madepursuant to the Care Everywhere program and may not contain all information available regarding this patient. 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 Gender Identity Not on file Sexual Orientation [...] this topic Medical Devices Implanted Type Area Commercial Green Building Designer Device Identifier Shelf Expiration Date Model / Serial / Lot Cnfrmr Opth Lg Pmma Ltwt Inert Rohini Implanted:Qty: 1 on 10/14/2017 by Leida Cantu MD at [facility] 06/22/2018 [id number] / / Insurance [facility] MANAGED MEDICARE ADV [facility] MANAGED MEDICARE ADV Advance Directives Documents on File Type Date Recorded 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 Adv Directive/Living Will/POA 10/21/2017 9:00 AM * Full Code (Latest Code Status on File) Date Activated Date Inactivated Comments 10/14/2017 6:32 PM 10/15/2017 4:28 PM * Full Code Date Activated Date Inactivated Comments 10/13/2017 7:51 PM 10/14/2017 6:32 PM Care Teams Licensed Loan Officer Relationship Specialty Start Date End Date Alfa Martines DO [address] [facility] [address] [place] [id number] PCP - General 10/14/10 Blaze Akhtar MD [address] [facility] [address] [address] Cardiovascular Disease 09/21/17 Jamie Jaime MD [address] [facility] [address] [address] Vascular Surgery 09/21/17
--- OUTSIDE RECORDS SUMMARY | 2025-01-04 14:20 | XMS_ITS | Referral Summary ---
Author Organization [facility] D Address [address] [place] [address] Care Team Providers Care Thread Grinder Tool Name Role Phone Alfa Mratines MD Primary Care Provider [phone] Blaze Akhtar MD Unavailable [phone] Lazara Tompkins MD Unavailable Javed Gibbs MD Unavailable [phone] Allergies Active Allergy Reactions Criticality Noted [...] 10/27/2013 Overview (09/15/2016): Dyslipidemia Coronary arteriosclerosis in [place] artery 10/27 Overview (09/16/2016): CAD in [place] artery Assessment & Plan (12/05/2020 2:51 PM [...] any clubs o r organizations such as yazidism groups, unions, fraternal or athletic groups, or [...] on file 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 Gender Identity Not on file Sexual Orientation Not on file Last Filed Vital Signs Vital Sign Reading Time Taken Comments Blood Pressure 196/76 05/31/2023 7:25 PM SCALES INSPECTOR Pulse 94 05/31/2023 7:25 PM SCALES INSPECTOR Temperature 37.7 C (99.9 F) 05/31/2023 7:25 PM SCALES INSPECTOR Respiratory Rate 20 05/31/2023 7:25 PM SCALES INSPECTOR Oxygen Saturation 97% 05/31/2023 7:25 PM SCALES INSPECTOR Inhaled Oxygen Concentration - - Weight 77.1 kg (170 lb) 05/31/2023 4:07 PM SCALES INSPECTOR Height 182.9 cm (6') 09/01/2022 8:58 AM CDT Body Mass Index 23.06 09/01/2022 8:58 AM CDT Plan of Treatment Not on file Insurance [facility] Address: [facility] [id number] [place] [id number] [facility] MEDICARE [facility] MEDICARE Advance Directives For more information, please contact: [phone] Documents on File Type Date Recorded 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 anation ADVANCE DIRECTIVE 07/26/2013 12:18 PM [...] No intubationNo non-invasive ventilationNo cardioversion Care Teams Thread Grinder Tool Relationship Specialty Start Date End Date Alfa Martines MD [address] [facility] [address] [place] [address] PCP - General 09/10/16 Blaze Akhtar MD [address] [facility] [address] [place] [address] Cardiology 01/03/17 Lazara Tompkins MD [address] [facility] [address] [place] [address] Medical Oncologist/Reproduction Specialist Hematology and Oncology 06/22/21 [place] [address] [place] [address] Consulting Physician Urology 06/29/21
--- OUTSIDE RECORDS SUMMARY | 2025-01-04 14:20 | XMS_ITS | Encounter Summary ---
Author Organization [facility] Health Address [address] [place] [address] Care Team Providers Care Outsole Beveler Name Role Phone Alfa Martines DO Primary Care Provider [phone] Blaze Akhtar MD Unavailable [phone] Jamie Jaime MD Unavailable [phone] Encounter Details Date Type Department Care Team (Late st Contact Info) Description 10/15/2017 Ophth Exam [facility] [address] [place] [address] Leida Cantu MD [address] [facility] [place] [place] [address] Social History Tobacco Use Types Packs/Day Years Used Date Smoking Tobacco: Every Day Cigarettes 1 20 Smokeless Tobacco: Never Alcohol Use Standard Drinks/Week Comments No 0 (1 standard drink = 0.6 oz pur e alcohol) Sex and Gender Information Value Date Recorded Sex Assigned at Not on file 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
--- OUTSIDE RECORDS SUMMARY | 2025-01-04 14:20 | XMS_ITS | Clinical Summary ---
Author Organization [facility] Address [address] [place] [address] Phone Care Team Providers Care Rug Cleaning Supervisor Name Role Phone Alfa Martines DO Primary Care Provider [phone] Allergies Active Allergy Reactions Criticality Noted Date [...] disease 08/14/2018 Atherosclerotic heart diseas e of [place] coronary artery without angina pectoris 08/14/2018 Malignant neoplasm of unspec ified testis, unspecified whether descended or undescended 08/14/2018 Hyperlipidemia 07/29/2015 Overview (01/25/2019): Hyperlipidemia Last Assessment & Plan: Well controlled. Continue current therapy. Coronary arteriosclerosis 10/27/2013 Overview (11/27/2020): CAD in [place] artery Last Assessment & Plan: Doing well. [...] on file Legal Sex Male 7:53 PM [facility] Gender Identity Not on file Sexual Orientation [...] exists Insurance [employer] MEDICARE Care Teams Rug Cleaning Supervisor Relationship Specialty Start Date End Date Alfa Martines DO [address] [phone] PCP - General Internal Medicine 09/25/18
--- OUTSIDE RECORDS SUMMARY | 2025-01-04 14:20 | XMS_ITS | Encounter Summary ---
Author Organization [facility] Health Address [address] [facility] [place] [address] Care Team Providers Care Participant Administrator Name Role Phone Alfa Martines Primary Care Provider [phone] Blaze Akhtar MD Unavailable [phone] Jamie Jaime MD Unavailable [phone] Encounter Details Date Type Department Care Team (Late st Contact Info) Description 04/24/2020 Lab Requisition [facility] Care DermPath Lab [address] [facility], [place] [phone] Des Hannon MD [address] [place] [address] Social History Tobacco Use Types Packs/Day Years Used Date Smoking Tobacco: Every Day Cigarettes 1 20 Smokeless Tobacco: Never Alcohol Use Standard Drinks/Week Comments No 0 (1 standard drink = 0.6 oz pur e alcohol) Sex and Gender Information Value Date Recorded Sex Assigned at Not on file Legal Sex Male 5:54 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 HYPERBARIC 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 Gender Identity Not on file Sexual Orientation [...] Comments DERMATOPATHOLOGY Routine 04/23/2020 12:0 0 AM CERTIFIED HYPERBARIC 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 documented in this encounter Results * DERMATOPATHOLOGY (04/23/2020 12:00 AM CERTIFIED HYPERBARIC 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) Case Report Dermatopathology Report Case: [id number] Authorizing Provider: Des Hannon MD Collected: 04/23/2020 12:00 AM Ordering Location: [facility] DermPath Lab Received: 04/24/2020 11:25 AM Pathologist: Gallito Rosario MD Specimens: A) - Skin, left post thigh B) - Skin, left inner thigh 0 5:19 PM [facility] DERMATOPATHOLOGY LABORATORY Final Diagnosis Specimen A. SKIN, left post thigh: SPONGIOTIC DERMATITIS WITH EOSINOPHILS (L30.8) (see microscopic description and comment) Specimen B. SKIN, left inner thigh: SPONGIOTIC DERMATITIS WITH NUMEROUS EOSINOPHILS (L30.8) (see microscopic description and comment) 0 5:19 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 HYPERBARIC 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 DERMATOPATHOLOGY LABORATORY at [address] CERTIFIED HYPERBARIC 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 Clinical History A-B: R/O psoriasis, eczema, allergic dermatitis vs CTCL. 0 5:19 PM [facility] DERMATOPATHOLOGY LABORATORY Gross Description Specimen A: Received is one formalin filled container labeled with the patient's name and designated left post thigh. The specimen consists of a shave biopsy measuring [id number]. Jar 0. Specimen B: Received is one formalin filled container labeled with the patient's name and designated left inner thigh. The specimen consists of a shave biopsy measuring [id number]. Jar 0. 0 5:19 PM [facility] DERMATOPATHOLOGY LABORATORY Microscopic Description Specimen A. SKIN, [...] phase of bullous pemphigoid. 0 5:19 PM [facility] DERMATOPATHOLOGY LABORATORY Disclaimer An external and internal positive and negative controls are appropriate for the histochemical, immunohistochemical and immunofluorescence stain(s) in this case (if any), except where stated explicitly. The performance characteristics of the stain(s) cited in this report were developed and its performance characteristic determined by the Dermatopathology Laboratory at [facility], directed by Dr. Bhaskar Rosario. These tests need not be, and therefore are not, approved by the [place] Food and Drug Administration. The tests are used for clinical purposes. Billing Codes Specimen Charges Stain Charges 29660 76727 1 1 77128 02843 1 1 0 5:19 PM [facility] DERMATOPATHOLOGY LABORATORY Embedded Images 0 5:19 PM [facility] DERMATOPATHOLOGY LABORATORY Pathology/Cytology TISSUE SPECIMEN FROM SKIN / Unknown 04/23/2020 04/24/2020 11:25 AM CERTIFIED HYPERBARIC 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 Miscellaneous samples (specimen) TISSUE SPECIMEN FROM SKIN / Unknown 04/23/2020 04/24/2020 11:25 AM CERTIFIED HYPERBARIC 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 us Des Hannon MD LAB - PATHOLOGY/CYTOLOGY ORD ERABLES Final Result DERMATOPATHOLOGY LABORATORY [facility] - Department of Dermatology [address] Floor [address] [phone] documented in this encounter Visit Diagnoses Not on filedocumented in this encounter Care Teams Participant Administrator Relationship Specialty Start Date End Date Alfa Martines DO [address] [facility] [address] [place] [address] PCP - General 10/14/10 Blaze Akhtar MD [address] [facility] [address] [facility] [address] [place] [address] Cardiovascular Disease 09/21/17 Jamie Jaime MD [address] [facility] [address] [address] Vascular Surgery 09/21/17 documented as of this encounter
--- OUTSIDE RECORDS SUMMARY | 2025-01-04 14:20 | XMS_ITS | Encounter Summary ---
Author Organization [facility] Health Address [address] [facility] [place] [address] Care Team Providers Care Promotions Assistant Name Role Phone Alfa Martines Primary Care Provider [phone]- [phone] Blaze Akhtar MD Unavailable [phone] Jamie Jaime MD Unavailable [phone] Encounter Details Date Type Department Care Team (Late st Contact Info) Description 01/25/2018 Lab Requisition [facility] Care DermPath Lab [address] [facility], [place] [phone] Des Hannon MD [address] [place] [address] Social History Tobacco Use Types Packs/Day Years Used Date Smoking Tobacco: Every Day Cigarettes 1 20 Smokeless Tobacco: Never Alcohol Use Standard Drinks/Week Comments No 0 (1 standard drink = 0.6 oz pur e alcohol) Sex and Gender Information Value Date Recorded Sex Assigned at Not on file 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 Previous Bx: [id number]. 8 1:55 PM CDT DERMATOPATHOLOGY LABORATORY Gross Description Specimen A: Received is one formalin filled container labeled with the patient's name and designated left upper outer arm. The specimen consists of a curettage and desiccation biopsy measuring [id number]. Jar 0. 8 1:55 PM CDT DERMATOPATHOLOGY [...] characteristic determined by the Dermatopathology Laboratory at [facility]. These tests need not be, and therefore are not, approved by the [place] Food and Drug Administration. The tests are used for clinical purposes. Billing Codes Specimen Charges Stain Charges 32829 1 8 1:55 PM CDT DERMATOPATHOLOGY LABORATORY Embedded Images 1:55 PM CDT DERMATOPATHOLOGY LABORATORY Pathology/Cytolog y TISSUE SPECIMEN FROM SKIN / Unknown 01/24/2018 01/25/2018 11:44 AM CDT Des Hannon MD LAB - PATHOLOGY/CYTOLOGY ORD ERABLES Final Result Performing Organization Address City/State/[facility] Co de Phone Number DERMATOPATHOLOGY LABORATORY [facility] - Department of Dermatology [address] [place] [address], 5th Floor Lab [address] [phone] documented in this encounter Visit Diagnoses Not on filedocumented in this encounter Care Teams Promotions Assistant Relationship Specialty Start Date End Date Alfa Martines DO [address] [facility] [address] [place] [address] PCP - General 10/14/10 Blaze Akhtar MD [address] [facility] [address] [address] Cardiovascular Disease 09/21/17 Jamie Jaime MD [address] [facility] [address] [address] Vascular Surgery 09/21/17 documented as of this encounter
--- OUTSIDE RECORDS SUMMARY | 2025-01-04 14:20 | XMS_ITS | Encounter Summary ---
Author Organization [facility] Health Address [address] [place] [address] Care Team Providers Care Outside Cutter Hand Name Role Phone Alfa Martines Primary Care Provider [phone] Blaze Akhtar MD Unavailable [phone] Jamie Jaime MD Unavailable [phone] Encounter Details Date Type Department Care Team (Late st Contact Info) Description 12/07/2017 Lab Requisition [facility] Care DermPath Lab [address] 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 Jar 0. 8 4:26 PM CDT DERMATOPATHOLOGY [...] characteristic determined by the Dermatopathology Laboratory at [facility]. These tests need not be, and therefore are not, approved by the [place] Food and Drug Administration. The tests are used for clinical purposes. Billing Codes Specimen Charges Stain Charges 36093 1 8 4:26 PM CDT DERMATOPATHOLOGY LABORATORY Embedded Images 8 4:26 PM CDT DERMATOPATHOLOGY LABORATORY Pathology/Cytolog y TISSUE SPECIMEN FROM SKIN / Unknown 12/06/2017 12/07/2017 12:09 PM CDT Des Hannon MD LAB - PATHOLOGY/CYTOLOGY ORD ERABLES Final Result DERMATOPATHOLOGY LABORATORY [facility] - Department of Dermatology [address] [place] [address] 5th Floor Lab [address] [phone] documented in this encounter Visit Diagnoses Not on filedocumented in this encounter Care Teams Outside Cutter Hand Relationship Specialty Start Date End Date Alfa Martines DO [address] [facility] [address] [place] [address] PCP - General 10/14/10 Blaze Akhtar MD [address] [facility] [address] [address] Cardiovascular Disease 09/21/17 Jamie Jaime MD [address] [address] Vascular Surgery 09/21/17 documented as of this encounter
--- OUTSIDE RECORDS SUMMARY | 2025-01-04 14:20 | XMS_ITS | Continuity of Care Document ---
Author Organization [facility] Address [address] [place] [address] Phone Care Team Providers Care Training Project Manager Name Role Phone [facility] [employer] Unavailable [...] Diagnoses Date Provider Providers Copied on Encounter [facility], [address] [place] [address] [address], [place], [place], [id number], [place] tel:[phone] SEC [facility] No Information 9-200 9 [facility] [employer]. [address] [facility], [address], [place], [place], [id number], [place]. tel:[phone] Office/outpat ient Visit, Est [facility], [address] [place] [address] [address], [place], [place], [id number], [place] tel:[phone] [facility] No Information 0-200 9 Krishnasamy Jaun. [address] [facility] [address], [place], [address], [place]. tel:[phone] [facility], [address], [place], [place], [id number], tel:[phone] [facility] No Information Mar-1 8-200 9 Krishnasamy Jaun. [facility] [place] [address], [place], [place], [facility], . tel:[phone] Office/outpat ient Visit, Est [facility], [address] [place] [address] [address], [place], [place], [id number], tel:[phone] SEC [facility] No Information Mar-1 6-200 9 Krishnasamy Jaun. [facility] [place] [address], [place], [place], [facility], . tel:[phone] [facility], [address] [place] [address] [address], [place], [place], [id number], tel:[phone] SEC [facility] No Information Mar-1 0-200 9 Loli Cox. [address] [facility] , [address], [place], [place], [facility], . tel:[phone] [facility], [address] [place] [address] [address], [place], [place], [address], tel:[phone] SEC [facility] No Information Dec-2 9-200 8 Ean Denny. [facility] [place] , [address], [place], [place], [facility], . tel:[phone] Family History Family Member Type Diagnosis Age At Onset No Information Payers Payer name Insurance type Covered constitution party ID Authoriza tion(s) No Information Social History [...]
[2025-01-04 14:47] LABS: Estimated Glomerular Filt Rate 39
== END 2025-01-04 14:17 | disposition home or self-care (01) ==
PROVIDERS: PCP Internal Medicine; Visit Provider Internal Medicine
DX: I72.9 Aneurysm of unspecified site (principal); R31.9 Hematuria, unspecified; J43.9 Emphysema, unspecified; K57.30 Diverticulosis of large intestine without perforation or abscess without bleeding; N40.0 Benign prostatic hyperplasia without lower urinary tract symptoms
CPT/HCPCS: 71260; 74177; Q9967